=== PATIENT | female | born 1995 | race Caucasian/White ===

== ENCOUNTER 2018-03-17 18:29 | Emergency (ER) | payer OTHER ==
[~2018-03-17] VITALS: Ht 157.5 cm; Wt 43.1 kg
[2018-03-17 18:34] VITALS: BP 96/64
== END 2018-03-17 19:33 | disposition home or self-care (01) ==
LOC: ER 18:36
DX: F41.9 Anxiety disorder, unspecified (principal); Z76.0 Encounter for issue of repeat prescription; Z60.2 Problems related to living alone
CPT/HCPCS: A4606; Z7610